=== PATIENT | male | born 1980 | race African-American/Black ===

== ENCOUNTER 2019-02-27 05:27 | Emergency (ER) | payer MEDICAID ==
[~2019-02-27] VITALS: Ht 177.8 cm; Wt 74.5 kg
[~2019-02-27 05:27] MED LIST: ACET-1757 PO; BISA10SU54 PR; CEFA2PIG3 IVPB; GABA300C10 PO; HEPA50004 SQ; HYDR2DIS PO; HYDR4TAB48 PO; IBUP-1222 PO; LORA1TAB PO; METH10TA2 PO; METH20TA17 PO; METH500T7 PO; NICO-486 TD; POLY17PO5 PO; SENN1TAB94 PO; TEMA15CA6 PO
[2019-02-27 05:31] VITALS: BP 144/86
--- NOTE | 2019-02-27 05:47 | NUR ---
PT PRESENTS WITH PAIN IN THE RIGHT AXILLA, WITH ABSCESS IN THAT AXILLA X 7 DAYS
--- NOTE | 2019-02-27 05:48 | NUR ---
ER PA IN TO ASSESS PT
[2019-02-27] MEDS ORDERED: LIDOCAINE-MPF 1%, 5ML ONE (05:55)
[2019-02-27] MEDS ORDERED: KETOROLAC 30 MG/1 ML ONE (05:55)
[2019-02-27] MEDS ORDERED: KETOROLAC 30 MG/1 ML IM ONE (06:00)
[2019-02-27] MEDS ORDERED: LIDOCAINE-MPF 1%, 5ML INFIL ONE (06:00)
[2019-02-27] MEDS ORDERED: LORazepam 1MG TABLET ONE (06:18)
[2019-02-27] MEDS ORDERED: LORazepam 1MG TABLET PO ONE (06:30)
== END 2019-02-27 06:50 | disposition home or self-care (01) ==
LOC: ED 06:17
DX: L73.2 Hidradenitis suppurativa (principal); F11.20 Opioid dependence, uncomplicated; F41.1 Generalized anxiety disorder; F17.200 Nicotine dependence, unspecified, uncomplicated; R06.4 Hyperventilation; Z72.89 Other problems related to lifestyle; Z75.9 Unspecified problem related to medical facilities and other health care; Z63.8 Other specified problems related to primary support group
CPT/HCPCS: 10061; 96372; 99284; J1885

== ENCOUNTER 2020-11-30 06:14 | Emergency (ER) | payer MEDICAID ==
[~2020-11-30] VITALS: Ht 180.3 cm; Wt 81.0 kg
[~2020-11-30 06:14] MED LIST changes: -ACET-1757 PO; +ACET-2065 PO; +METH-639 PO; -METH500T7 PO
--- NOTE | 2020-11-30 06:30 | NUR ---
pt came into ed this am due to erythemous lump on right clavicle. 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 pt states he injected there recently, bump present x2days, reports pain with abcess. pt resting on gurney, nad, appears slightly uncomfortable, placed on spo2/bp monitoring at this time. bed in lowest, rails engaged, call light on lap, wctm. Martina ERP at bs for eval and poc.
[2020-11-30] MEDS ORDERED: LIDOCAINE-MPF 1%, 5ML ONE (06:44)
--- NOTE | 2020-11-30 06:51 | NUR ---
report to caio gama, pt care transferred at this time.
--- NOTE | 2020-11-30 06:53 | NUR ---
report received from LUIS Chi and PA at bedside draining wound. no s/s distress. will monitor.
[2020-11-30] MEDS ORDERED: LIDOCAINE-MPF 1%, 5ML INFIL ONE (07:00)
[2020-11-30] MEDS ORDERED: IBUPROFEN 600 MG TABLET PO ONE (07:00)
--- NOTE | 2020-11-30 07:01 | NUR ---
DRESSED WOUND WITH 4X4 AND TAPE. REVIEWED WOUND CARE. PATIENT HAS RIDE WITH FRIEND.
[2020-11-30 07:02] VITALS: BP 129/73
[2020-11-30] MEDS ORDERED: IBUPROFEN 600 MG TABLET ONE (07:04)
== END 2020-11-30 07:09 | disposition home or self-care (01) ==
LOC: ED 07:03
DX: L02.11 Cutaneous abscess of neck (principal)
CPT/HCPCS: 10060